=== PATIENT | female | born 1955 | race Caucasian/White ===

== ENCOUNTER 2020-09-22 08:40 | Inpatient (IN) ==
[2020-09-22 09:49] LABS: ABS Lymphocytes 0.6 10^3/ul (1.0-4.8); ABS Monocytes 0.6 10^3/ul (0-0.8); ABS Neutrophils 4.7 10^3/ul (1.5-7.7); Hematocrit 39 % (35-47); Hemoglobin 13.2 g/dL (12.0-16.0); Mean Corpuscular HGB Conc 34 g/dL (31-36); Mean Corpuscular Hemoglobin 31 pg (27-31); Mean Corpuscular Volume 92 fL (80-97); Mean Platelet Volume 7.9 fL (7.4-10.4); Platelet Count 255 10^3/uL (150-450); Red Blood Count 4.27 10^6 /uL (3.70-4.87); Red Cell Distribution Width 14 % (10-15)
[2020-09-22 10:10] LABS: Albumin 3.8 g/dL (3.2-5.2); Albumin/Globulin Ratio 1.1 (1-3); Calcium 8.3 mg/dL (8.6-10.3); EGFR African American 41.3 (>60); EGFR Non-African American 34.2 (>60); Globulin 3.6 g/dL (2-4); Potassium 3.4 mmol/L (3.5-5.0); Total Bilirubin 0.5 mg/dL (0.2-1.0); Total Protein 7.4 g/dL (6.4-8.9)
[2020-09-22] MEDS ORDERED: Iodixanol (CONTRAST) 320 MG/ML 100 ML SDV IV ONE (10:16)
[2020-09-22] MEDS ORDERED: NS 0.9% 1000 ml BAG 1,000 ML IV ONE (11:13)
[2020-09-22] MEDS ORDERED: Ondansetron 4 mg VIAL 2 MG/ML 2 ml VIAL IV PRN (11:14)
[2020-09-22 11:37] LABS: Magnesium 1.9 mg/dL (1.9-2.7)
[2020-09-22] MEDS ORDERED: Potassium Chlor 20 meq TAB.ER PO ONE (11:47)
[2020-09-22] MEDS ORDERED: Remdesivir 100 mg Vial 200 MG in NS 0.9% 250 ml 210 ML IV ONE (12:00)
[2020-09-22 12:47] LABS: INR 1.19 (0.86-1.15)
[2020-09-22] MEDS ORDERED: NS 0.9% 250 ml 250 ML ONE (14:27)
[2020-09-22] MEDS: Enoxaparin 40 MG/0.4 ML SYR SUBCUT SCH (14:39)
[2020-09-22] MEDS: NS 0.9% 1000 ml BAG 1,000 ML IV SCH (15:58)
[2020-09-23 06:14] LABS: ABS Lymphocytes 0.7 10^3/ul (1.0-4.8); ABS Monocytes 0.5 10^3/ul (0-0.8); ABS Neutrophils 3.9 10^3/ul (1.5-7.7); Hematocrit 38 % (35-47); Hemoglobin 12.6 g/dL (12.0-16.0); Lymphocyte % 13.7 %; Mean Corpuscular HGB Conc 34 g/dL (31-36); Mean Corpuscular Hemoglobin 31 pg (27-31); Mean Corpuscular Volume 93 fL (80-97); Mean Platelet Volume 8.9 fL (7.4-10.4); Platelet Count 297 10^3/uL (150-450); Red Blood Count 4.05 10^6 /uL (3.70-4.87); Red Cell Distribution Width 14 % (10-15); White Blood Count 5.1 10^3/uL (3.5-10.8)
[2020-09-23 06:32] LABS: Albumin 3.6 g/dL (3.2-5.2); Calcium 7.9 mg/dL (8.6-10.3); EGFR African American 54.7 (>60); EGFR Non-African American 45.2 (>60); Globulin 3.5 g/dL (2-4); Total Bilirubin 0.3 mg/dL (0.2-1.0); Total Protein 7.1 g/dL (6.4-8.9)
[2020-09-23 06:34] LABS: INR 1.17 (0.86-1.15)
[2020-09-23] MEDS: Remdesivir 100 mg Vial 100 MG in NS 0.9% 250 ml 230 ML IV SCH (08:49)
[2020-09-23] MEDS: NS 0.9% 1000 ml BAG 1,000 ML IV SCH (08:55)
[2020-09-23] MEDS: Enoxaparin 40 MG/0.4 ML SYR SUBCUT SCH (11:31)
[2020-09-23] MEDS ORDERED: NS 0.9% 1000 ml BAG 1,000 ML IV SCH (16:01)
[2020-09-24 07:48] LABS: INR 1.24 (0.86-1.15)
[2020-09-24 07:55] LABS: Albumin 3.3 g/dL (3.2-5.2); Albumin/Globulin Ratio 1.1 (1-3); Calcium 7.9 mg/dL (8.6-10.3); EGFR African American 51.3 (>60); EGFR Non-African American 42.4 (>60); Globulin 3.1 g/dL (2-4); Total Bilirubin 0.3 mg/dL (0.2-1.0); Total Protein 6.4 g/dL (6.4-8.9)
[2020-09-24] MEDS ORDERED: NS 0.9% 50 ML 50 ML IVPB ONE (10:00)
[2020-09-24] MEDS: Remdesivir 100 mg Vial 100 MG in NS 0.9% 250 ml 230 ML IV SCH ×2 (10:23→13:00)
[2020-09-24] MEDS: Enoxaparin 40 MG/0.4 ML SYR SUBCUT SCH (12:24)
[2020-09-25] MEDS ORDERED: Enoxaparin 40 MG/0.4 ML SYR SUBCUT SCH (09:00)
[2020-09-25 09:48] LABS: Albumin 3.2 g/dL (3.2-5.2); Calcium 7.7 mg/dL (8.6-10.3); EGFR African American 58.1 (>60); Globulin 3.1 g/dL (2-4); Potassium 3.7 mmol/L (3.5-5.0); Total Bilirubin 0.4 mg/dL (0.2-1.0); Total Protein 6.3 g/dL (6.4-8.9)
[2020-09-25 09:53] LABS: INR 1.27 (0.86-1.15)
[2020-09-25] MEDS: Remdesivir 100 mg Vial 100 MG in NS 0.9% 250 ml 230 ML IV SCH (10:16)
[2020-09-25 12:58] VITALS: BP 147/60
== END 2020-09-25 16:20 | disposition home or self-care (01) | DRG 137 ==
LOC: ED 08:40 → MED 11:14 → SUATTDRO 11:14 → MED 15:29
PROVIDERS: ADMIT Hospitalist; ATTEND Internal Medicine